=== PATIENT | male | born 1970 | race African-American/Black ===

== ENCOUNTER 2020-07-13 10:37 | Outpatient (CLI) | payer OTHER ==
--- NOTE | 2020-07-13 13:11 | Ultrasound Report ---
RIGHT DIGITAL DIAGNOSTIC MAMMOGRAM WITH CAD 07/13/2020 RIGHT LIMITED BREAST ULTRASOUND INDICATION: Male patient reports a history of lump and pain in the right breast. He has had a previou s mammogram at an outside facility. He reports that the pain has decreased and the area is no longer palpable. TECHNIQUE: Digital right mammographic imaging was performed. Limited ultrasound was performed. This examination was interpreted with the benefit of Computer-Aided Detection (CAD) analysis. COMPARISON: Bilateral mammogram and ultrasound, 12/04/2019 FINDINGS: Breast Density: There are scattered areas of fibroglandular density. MAMMOGRAPHIC FINDINGS: There is no evidence of dominant mass, suspicious calcifications or architectu ral distortion in the right breast. There is mild gynecomastia corresponding to the patient's area of clinical concern. This appears unchanged from the previous study. ULTRASOUND FINDINGS: Targeted ultrasound evaluation was performed of the area of interest. Sonograp hic evaluation of the right breast demonstrates no evidence of suspicious solid mass or shadowing. Contralateral left breast imaging was performed for the purpose of comparison, which also demonstrate s no abnormality. IMPRESSION: Follow up recommendation: Clinical exam BI-RADS Category 2: Benign. Mammographic and sonographic findings are most compatible with mild gyne comastia and correspond to the patient's area of clinical concern. Therefore, clinical correlation is recommended. A "normal" or negative report should not discourage follow up or biopsy of a clinically significant f inding. A written summary of these findings will be mailed to the patient. The patient will be entered into a mammography reporting system which will generate a reminder letter for the patient's next appointmen t at the appropriate interval. According to the [employer], yearly mammograms are recommended starting at age 40 and continuing as long as a woman is in good health. Breast MRI is recommended for women with an kermit roximately 20-25% or greater lifetime risk of breast cancer, including women with a strong family his tory of breast or ovarian cancer and women who have been treated for Hodgkin's disease. Signer Name: Val Crisostomo MD Signed: 07/13/2020 1:06 PM Workstation Name: [employer]
== END 2020-07-13 10:38 | disposition home or self-care (01) ==
LOC: SPVWC 10:37
PROVIDERS: ATTEND Surgery
DX: N64.4 Mastodynia (principal)

== ENCOUNTER 2021-06-23 10:44 | Outpatient (CLI) | payer OTHER ==
--- NOTE | 2021-06-24 09:47 | Mammography Report ---
DIGITAL SCREENING MAMMOGRAM WITH CAD, 06/23/2021 CLINICAL INFORMATION / INDICATION: Routine screening mammography. SCREENING MAMMO TECHNIQUE: Digital bilateral 2D mammography was obtained in the craniocaudal and mediolateral obliqu e projections. This examination was interpreted with the benefit of Computer-Aided Detection analysis . COMPARISON: 07/13/2020 FINDINGS: Breast Density: No dominant mass, suspicious calcifications, or architectural distortion in either breast. IMPRESSION: No mammographic evidence of malignancy. Follow up recommendation: Clinical exam BI-RADS Category 1: Negative. A "normal" or negative report should not discourage follow up or biopsy of a clinically significant f inding. A written summary of these findings will be mailed to the patient. The patient will be entered into a mammography reporting system which will generate a reminder letter for the patient's next appointmen t at the appropriate interval. The [employer] recommends yearly mammograms starting at age 40 and continuing as l kenny as a woman is in good health. Breast MRI is recommended for women with an approximate 20-25% or greater lifetime risk of breast cancer, including women with a strong family history of breast or ova marilynn cancer or who have been treated for Hodgkin's disease. Signer Name: Ryan Manuel MD Signed: 06/24/2021 9:43 AM Workstation Name: [facility]
== END 2021-06-23 10:45 | disposition home or self-care (01) ==
LOC: SPVWC 10:44
PROVIDERS: ATTEND Physician Assistant
DX: Z12.31 Encounter for screening mammogram for malignant neoplasm of breast (principal); N64.4 Mastodynia
CPT/HCPCS: 77067